=== PATIENT | female | born 1990 | race Caucasian/White ===

== ENCOUNTER 2019-03-17 16:33 | Observation (INO) | payer BC ==
[2019-03-17 16:59] VITALS: BP 115/81
[2019-03-17] MEDS ORDERED: PREN1TAB80 PO (17:01)
[2019-03-23] MEDS ORDERED: PRENATAL VIT PO (06:44)
[2019-03-25] MEDS ORDERED: IBUP-2071 PO (16:36)
[2019-03-25] MEDS ORDERED: FERR-89 PO (16:37)
[2019-03-25] MEDS ORDERED: DSS100 PO (16:37)
[2019-03-26] MEDS ORDERED: PERCT PO ×2 (09:48→09:49)
== END 2019-03-17 17:30 | disposition home or self-care (01) ==
LOC: 4S 16:33
PROVIDERS: ADMIT Obstetrics & Gynecology; ATTEND Obstetrics & Gynecology
DX: O36.5930 Maternal care for other known or suspected poor fetal growth, third trimester, not applicable or unspecified (principal); Z3A.36 36 weeks gestation of pregnancy
CPT/HCPCS: 81002; G0378

== ENCOUNTER 2019-03-19 17:32 | Observation (INO) | payer BC ==
[~2019-03-19] VITALS: Ht 147.3 cm; Wt 55.5 kg
[~2019-03-19 17:32] MED LIST: PREN1TAB80 PO
[2019-03-23] MEDS ORDERED: PRENATAL VIT PO (06:44)
== END 2019-03-19 19:55 | disposition home or self-care (01) ==
LOC: 4S 17:32
PROVIDERS: ADMIT Obstetrics & Gynecology; ATTEND Obstetrics & Gynecology
DX: Z34.93 Encounter for supervision of normal pregnancy, unspecified, third trimester (principal); Z3A.36 36 weeks gestation of pregnancy
CPT/HCPCS: 76805; G0378